=== PATIENT | male | born 1970 | race Caucasian/White ===

== ENCOUNTER → 2023-12-02 | Outpatient (CLI) | payer OTHER, SELFPAY ==
[2023-12-02 17:32] LABS: Absolute Lymphocyte Count 1.72 X10^3/uL (0.83-4.51); Absolute Neutrophil Count 5.2 X10^3/uL (2.0-7.7); Basophil# 0.02 X10^3/uL; Basophil% 0.3 % (0-1); Eosinophil# 0.19 X10^3/uL; Eosinophils% 2.5 % (0-5); Hematocrit 44.1 % (40-54); Hemoglobin 14.8 g/dL (13.0-16.5); Lymphocyte # 1.72 X10^3/ul (0.83-4.51); Lymphocyte % 22.5 % (19-41); Mean Corp Hgb Conc 33.6 g/dL (32-36); Mean Corpuscular Hgb 28.8 pg (27.0-32.0); Mean Corpuscular Volume 85.8 fL (80-94); Mean Platelet Vol. 8.5 fl (6.2-12.0); Monocyte# 0.48 X10^3/uL; Monocyte% 6.3 % (0-10); NRBC Flagged by Analyzer 0 % (0-5); Neutrophil # 5.22 X10^3/uL (2.7-7.7); Neutrophil % 68.1 % (47-70); Platelet Count 222 K/mm3 (150-450); RBC Distribution Width CV 13.4 % (11.6-14.6); RBC Distribution Width SD 42.1 fl (35.1-43.9); Red Blood Count 5.14 M/mm3 (4.6-6.2); White Blood Count 7.7 K/mm3 (4.4-11.0)
[2023-12-02 18:02] LABS: Hemoglobin A1c 4.8 % (3.8-5.6)
[2023-12-02 18:31] LABS: AST(SGOT) 34 U/L (15-37); Alanine Aminotransfer ALT/SGPT 41 U/L (16-61); Albumin, Serum 4.1 g/dL (3.2-5.0); Alkaline Phosphatase 66 U/L (45-117); Anion Gap 7 (5-15); BUN 25 mg/dL (7-18); BUN/Creat Ratio 30.2 RATIO (10-20); Calcium,Total 9.6 mg/dL (8.5-10.1); Chloride 103 mmol/L (98-107); Cholesterol 205 mg/dL (200); Creatinine, Serum 0.83 mg/dL (0.70-1.30); EST Glomerular Filtration Rate 104 mL/min (>60); Est Glom Filt Rate - Afr Amer 126 mL/min (>60); Glucose 74 mg/dL (74-106); High Density Lipoprotein 53 mg/dL; PSA,Total - Annual Screen 0.47 ng/mL (0.00-4.00); Potassium 3.6 mmol/L (3.5-5.1); Protein, Total 8.1 g/dL (6.4-8.2); Sodium Level 136 mmol/L (136-145); Triglycerides 40 mg/dL; Very Low Density Lipoprotein 8 mg/dL (5-40)
== END | disposition home or self-care (01) ==
LOC: LAB 16:08
PROVIDERS: PCP Nurse Practitioner Family; Referring Provider Nurse Practitioner Family; Visit Provider Nurse Practitioner Family
DX: Z12.5 Encounter for screening for malignant neoplasm of prostate (principal); E66.01 Morbid (severe) obesity due to excess calories; Z82.49 Family history of ischemic heart disease and other diseases of the circulatory system
CPT/HCPCS: 36415; 80053; 80061; 83036; 84153; 85025; G0103

== ENCOUNTER 2023-12-17 07:06 | Outpatient (CLI) | payer OTHER, SELFPAY ==
--- NOTE | 2023-12-17 07:11 | ECHOCS_ITS ---
Reason For Study: MURMUR Procedure This was a 2D Doppler, Color Flow transthoracic echocardiogram. The study was technically difficult. Contrast injection was performed. Exam performed in department. Left Ventricle Normal LV size. The estimated ejection fraction is 60 %. Diastolic function is indeterminate. No regional wall motion abnormalities noted. Right Ventricle Normal RV size. Normal systolic function. Atria The left atrium is mildly enlarged. Normal right atrium. No doppler evidence for ASD. Mitral Valve There is no mitral valve stenosis. Trivial mitral valve insufficiency. Tricuspid Valve There is no tricuspid stenosis. Pulmonary artery systolic pressure is 25 mmHg. Aortic Valve Trisinus/trileaflet aortic valve. There is no aortic stenosis. No aortic valve insufficiency. Pulmonic Valve There is no pulmonic valvular stenosis. No pulmonic valve insufficiency. Great Vessels Normal aortic root. Pericardium/Pleural No pericardial effusion. Medication Diluted definity 1.5ml given slow IV push to enhance endocardial definition. MMode/2D Measurements & Calculations LVIDd: 5.1 cm IVSd: 1.2 cm LVOT diam: 2.2 cm LVIDs: 3.7 cm LVPWd: 1.1 cm FS: 27.0 % LVOT area: 3.9 cm2 Ao root diam: 3.2 cm LAV(MOD-bp): 83.5 ml LVAd ap4: 49.8 cm2 LAV(MOD-bp) Indexed: 34.5 ml/m2 LVLd ap4: 10.0 cm LAV(MOD-sp2): 79.1 ml EDV(MOD-sp4): 203.9 ml LAV(MOD-sp4): 78.6 ml EDV(sp4-el): 210.3 ml LVAs ap4: 32.8 cm2 LVLs ap4: 8.5 cm ESV(MOD-sp4): 104.6 ml ESV(sp4-el): 107.2 ml EF(MOD-sp4): 48.7 % EF(sp4-el): 49.0 % SV(MOD-sp4): 99.3 ml SV(sp4-el): 103.2 ml LA A4 area: 24.0 cm2 LA dimension(2D): 4.8 cm RA A4 area: 11.9 cm2 TAPSE: 1.0 cm Time Measurements MV dec time: 0.26 sec Doppler Measurements & Calculations MV E max milton: 86.3 cm/sec Lat Peak E' Milton: 11.1 cm/sec Med Peak E' Milton: 6.5 cm/sec MV A max milton: 100.2 cm/sec E/E' lat: 7.7 E/E' med: 13.3 MV E/A: 0.86 MV V2 max: 100.8 cm/sec MV dec slope: 327.9 cm/sec2 Ao V2 max: 202.2 cm/sec MV max P.1 mmHg Ao max P.4 mmHg MV V2 mean: 68.3 cm/sec Ao V2 mean: 139.4 cm/sec MV mean P.1 mmHg Ao mean P.9 mmHg MV V2 VTI: 29.3 cm Ao V2 VTI: 42.7 cm MVA(VTI): 3.3 cm2 AV (velocity ratio): 0.58 MARGA(I,D): 2.3 cm2 MARGA(V,D): 2.1 cm2 LV V1 max: 111.2 cm/sec SV(LVOT): 96.9 ml PA V2 max: 131.8 cm/sec LV V1 max P.9 mmHg PA V2 mean: 94.4 cm/sec LV V1 mean P.7 mmHg LV V1 mean: 77.6 cm/sec LV V1 VTI: 25.0 cm ECHO/Echo Complete W/ Contrast Interpretation Summary The estimated ejection fraction is 60 %. Diastolic function is indeterminate. The left atrium is mildly enlarged. Trivial mitral valve insufficiency. Ordering Physician: Oscar Berry Referring Physician: Oscar Berry Performed By: Missy Thornton RCS
--- NOTE | 2023-12-17 07:11 | EKG12_ITS ---
Test Reason : MURMUR Blood Pressure : / mmHG Vent. Rate : 062 BPM Atrial Rate : 062 BPM P-R Int : 168 ms QRS Dur : 110 ms QT Int : 404 ms P-R-T Axes : 055 -27 038 degrees QTc Int : 410 ms Normal sinus rhythm Normal ECG Confirmed by MARK EARL, CHALO ([id number]), fan mail editor BANDAR WEST ([id number]) on 12/21/2023 2:21:51 PM Referred By: Oscar Berry Confirmed By:MARCO FLORES MD
--- NOTE | 2023-12-17 12:26 | STRESSREP ---
Stress Test Report Date: [12/17/2023] Procedure: Exercise tolerance test/imaging study Indications: Family history of CAD Consent: Per the patient Procedure: The patient exercised on a Cruzito protocol for 9 minutes achieving a peak heart rate of 151 bpm (89% predicted maximal heart rate) with a peak blood pressure 180/78 mmHg and a peak MET capacity of 10.4 METs. The baseline ECG demonstrated normal sinus rhythm. The peak exercise ECG demonstrated no significant ischemic changes. EKG during recovery revealed no significant ischemic changes [There were no cardiac dysrhythmias pretest, during exercise, or recovery]. The functional capacity was considered normal for age. There was [no complaint of chest discomfort during exercise or recovery]. The examination was discontinued secondary to achieving target heart rate. Impression: 1. Technically adequate (percent predicted maximal heart rate greater than 85%) exercise tolerance test 2. Stress test is negative for exercise-induced EKG changes of ischemia 3. The test test is negative for exercise-induced chest pain 4. Functional capacity is normal for age 5. Nuclear images pending Myocardial perfusion imaging study: Technique: The patient was injected with 14.9 mCi of technetium 99m Cardiolite and subsequently rest SPECT Cardiolite nuclear imaging was obtained in the horizontal long, vertical long, and short axis views. The patient exercised on a Cruzito protocol. Please see above for details. The patient was injected with 44.8 mCi of technetium 99m Cardiolite and subsequently stress SPECT Cardiolite nuclear imaging was obtained in the horizontal long, vertical long, and short axis views. A gated Cardiolite study at peak stress was obtained. Interpretation: Rest and stress SPECT Cardiolite nuclear imaging status post realignment, normalization, and attenuation correction, demonstrates mildly decreased radioisotope uptake in the apex on both the rest and stress images. There is no significant reversibility suggestive of significant ischemia. The gated Cardiolite study demonstrates mild apical hypokinesis. The reported LVEF is 50%. These findings are suggestive of prior apical myocardial infarction. No evidence of ischemia Impression: 1. There is no evidence of ischemia. Prior apical myocardial infarction cannot be excluded. 2. The gated Cardiolite study reports an LVEF of 50%. This note was generated with [employer] software. It may contain incorrect words, spelling, and punctuation that were not noted in checking the note before signing.
== END 2023-12-17 23:59 | disposition home or self-care (01) ==
LOC: CVS 07:08
PROVIDERS: PCP Nurse Practitioner Family; Referring Provider Nurse Practitioner Family; Visit Provider Nurse Practitioner Family
DX: R01.1 Cardiac murmur, unspecified (principal); Z82.49 Family history of ischemic heart disease and other diseases of the circulatory system; I51.7 Cardiomegaly
CPT/HCPCS: 78452; 93005; 93017; 93306; A9500; Q9957; A4216; C8929

== ENCOUNTER → 2024-06-14 | Outpatient (CLI) | payer OTHER, SELFPAY ==
[2024-06-14 16:10] LABS: AST(SGOT) 31 U/L (15-37); Alanine Aminotransfer ALT/SGPT 43 U/L (16-61); Albumin, Serum 4.1 g/dL (3.2-5.0); Alkaline Phosphatase 66 U/L (45-117); Anion Gap 7 (5-15); BUN 21 mg/dL (7-18); BUN/Creat Ratio 25.4 RATIO (10-20); Calcium,Total 9.3 mg/dL (8.5-10.1); Chloride 103 mmol/L (98-107); Cholesterol 111 mg/dL (200); Creatinine, Serum 0.83 mg/dL (0.70-1.30); EST Glomerular Filtration Rate 104 mL/min (>60); Est Glom Filt Rate - Afr Amer 126 mL/min (>60); Globulin 4.1 g/dL (2.2-4.2); Glucose 87 mg/dL (74-106); High Density Lipoprotein 48 mg/dL; Potassium 3.8 mmol/L (3.5-5.1); Protein, Total 8.2 g/dL (6.4-8.2); Sodium Level 137 mmol/L (136-145); Triglycerides 35 mg/dL; Very Low Density Lipoprotein 7 mg/dL (5-40)
== END | disposition home or self-care (01) ==
LOC: LAB 15:27
PROVIDERS: PCP Nurse Practitioner Family; Referring Provider Nurse Practitioner Family; Visit Provider Nurse Practitioner Family
DX: E78.2 Mixed hyperlipidemia (principal)
CPT/HCPCS: 36415; 80053; 80061